=== PATIENT | male | born 1970 | race African-American/Black ===

== ENCOUNTER 2023-10-27 06:06 | Emergency (ER) | payer OTHER, SELFPAY ==
--- NOTE | ~2023-10-27 | XR_ITS ---
Portable chest x-ray Comparison: None Clinical History: Upper respiratory infection Findings: Lungs are clear, without focal consolidation or pleural effusion. Cardiomediastinal silho uette is unremarkable. Bones and soft tissues are unremarkable. Impression: Normal chest. Reviewed, dictated and finalized at [facility]. E MINIMIZATION TECHNICIAN Impression: Normal chest.
[2023-10-27 06:10] VITALS: BP 150/93; PULSE 91; RESP 16; TEMP 36.3; O2SAT 99
[2023-10-27 07:04] LABS: Strep Group A RT-PCR NOT DETECTED (Negative)
[2023-10-27 07:18] LABS: Influenza A QL RT-PCR Negative (Negative); Influenza B QL RT-PCR Negative (Negative); RSV RNA, RT-PCR Negative (Negative); SARS-CoV-2 RNA PCR Negative (Negative)
--- NOTE | 2023-10-27 08:11 | ED.GENADULT ---
HPI - General Adult General Chief complaint: Upper Respiratory Infection Stated complaint: sore throat, cough Time Seen by Provider: 10/27/23 07:02 History of Present Illness HPI narrative: patient is a 53-year-old male who presents ER with sore throat cough. Ongoing over the last week. Associated with sinus congestion. No fevers or chills or sweats. He has not heard any wheezing. Review of Systems Constitutional: Constitutional: Denies chills, Denies fatigue and Denies fever(s) ENT: Reports nasal congestion and Reports sore throat Respiratory: Respiratory: Reports cough, Denies dyspnea and Denies wheezing PMFSH Past Medical History Medical History (Updated 10/27/23 @ 18:58 by Frederic Tapia MD) Healthy adult male Exam Narrative: GENERAL: Well-appearing, well-nourished, and in no acute distress. HEAD: Normocephalic, atraumatic. ENT: Mucous membranes moist. CHEST: Clear to auscultation. No respiratory distress. HEART: Regular rate and rhythm. Normal peripheral pulses. EXTREMITIES: Normal range of motion. No edema. SKIN: Warm, dry, no rash. NEURO: Alert and oriented x3. PSYCH: Normal mood and affect. Course Course Emergency Course: Informed of results. Discharge home. Vital Signs Vital signs: Vital Signs Temperature 97.3 F L 10/27/23 06:10 Pulse Rate 91 10/27/23 06:10 Respiratory Rate 16 10/27/23 06:10 Blood Pressure 150/93 H 10/27/23 06:10 Pulse Oximetry 99 10/27/23 06:10 Oxygen Delivery Room Air 10/27/23 06:10 Temperature 97.3 F L 10/27/23 06:10 Pulse Rate 86 10/27/23 08:22 Respiratory Rate 14 10/27/23 08:22 Blood Pressure 140/74 10/27/23 08:22 Pulse Oximetry 98 10/27/23 08:22 Oxygen Delivery Room Air 10/27/23 07:59 Medical Decision Making Vital Signs Vital Signs: Vital Signs Temperature 97.3 F L 10/27/23 06:10 Pulse Rate 91 10/27/23 06:10 Respiratory Rate 16 10/27/23 06:10 Blood Pressure 150/93 H 10/27/23 06:10 Pulse Oximetry 99 10/27/23 06:10 Oxygen Delivery Room Air 10/27/23 06:10 Temperature 97.3 F L 10/27/23 06:10 Pulse Rate 86 10/27/23 08:22 Respiratory Rate 14 10/27/23 08:22 Blood Pressure 140/74 10/27/23 08:22 Pulse Oximetry 98 10/27/23 08:22 Oxygen Delivery Room Air 10/27/23 07:59 Lab Data Labs: Lab Results 10/27/23 Range/Units 06:33 Influenza A (RT-PCR) Negative (Negative) Influenza B (RT-PCR) Negative (Negative) RSV (RT-PCR) Negative (Negative) SARS-CoV-2 RNA (RT-PCR) Negative (Negative) Group A Strep (PCR) Not detected (Negative) Imaging Data Radiologist's impression: ITS Impressions Chest X-Ray 10/27/23 07:45 Impression: Normal chest. Discharge Plan Discharge Clinical Impression: Upper respiratory infection Patient Disposition: Home, Self-Care Condition: Stable Instructions: Upper Respiratory Infection (ED) Additional Instructions: As discussed you have a viral illness. Unfortunately there are no specific medications we can give you to make the illness end faster. Antibiotics do not work for viral illnesses. However, you can take Acetaminophen or Ibuprofen to help with fevers and pain. Stay well hydrated and rested. Return to the emergency department if your fevers and chills continue to worse after 5 days, if you develop worsening cough with thick sputum, or are unable to stay hydrated. Contact your primary care provider in the next few days for a re-evaluation and to make sure your symptoms are improving. Prescriptions: New guaifenesin [Mucinex] 600 mg tablet extended release 12hr 600 mg PO BID Qty: 14 0RF fluticasone propionate [Flonase Allergy Relief] 50 mcg/actuation spray,suspension 1 spray intranasal BID Qty: 16 0RF Rx Instructions: administer into each nostril Follow-up/Referrals: UNKNOWN,DOCTOR [Primary Care Provider] - 1 Week
[2023-10-27 08:22] VITALS: BP 140/74; PULSE 86; RESP 14; O2SAT 98
== END 2023-10-27 08:23 | disposition home or self-care (01) ==
PROVIDERS: Emergency Medicine; Emergency Provider Emergency Medicine
DX: J06.9 Acute upper respiratory infection, unspecified (principal); Z20.822 Contact with and (suspected) exposure to COVID-19
CPT/HCPCS: 71045; 87637; 87651; 99283